=== PATIENT | female | born 2000 | race Caucasian/White ===

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

== ENCOUNTER 2019-04-24 22:01 | Emergency (ER) | payer SELFPAY ==
--- OUTSIDE RECORDS SUMMARY | 2019-04-24 22:06 | XMS REPORT ---
:2000 [facility] Address [address] [place] [address] Dr. [place] [address] [place] [id number] Care Team Providers Name Role Phone Unavailable Unavailable Unavailable Problems This patient has no known problems. Allergies, Adverse Reactions, Alerts This patient has no known allergies or adverse reactions. Medications This patient has no known medications.
[2019-04-24] MEDS ORDERED: BENZONATATE 100 MG CAP PO ONE (23:05)
[2019-04-24] MEDS ORDERED: ALBUTEROL 2.5 MG/3 ML NEB SOL ONE (23:05)
[2019-04-24 23:13] LABS: Urine Blood 2+ (NEG); Urine Glucose NEGATIVE (NEG); Urine Protein 1+ (NEG); Urine Specific Gravity >1.030 (1.005-1.030)
--- NOTE | 2019-04-24 23:31 | EDPHYS ---
Physician Documentation [facility] Name: Tiffanie Corbin Age: 19 yrs Sex: Female : 2000 Arrival Date: 04/24/2019 Time: 22:04 Bed 30 Private MD: ED Physician Boni Hartman HPI: 04/24 22:35 This 19 yrs old Female presents to ER via Ambulatory with complaints of cp Fever, Shortness Of Breath. 22:35 The patient or guardian reports cough, that is intermittent, with productive sputum. cp 22:35 Onset: The symptoms/episode began/occurred 3 day(s) ago. Associated signs and symptoms: cp Pertinent positives: chest pain, with cough, fever, sore throat, sinus pressure, Pertinent negatives: diarrhea, ear ache, vomiting. Severity of symptoms: in the emergency department the symptoms are unchanged despite home interventions. 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 - Social history:: Smoking status: Patient uses tobacco products, smokes one-half pack cigarettes per day. - Ebola Screening: : No symptoms or risks identified at this time. ROS: 22:40 Constitutional: Negative for body aches, chills, fever, poor PO intake. cp 22:40 Eyes: Negative for injury, pain, redness, and discharge. cp 22:40 ENT: Positive for sinus congestion, sore throat, Negative for drainage from ear(s), ear pain, difficulty swallowing, difficulty handling secretions. 22:40 Neck: Negative for pain with movement, pain at rest, stiffness. 22:40 Cardiovascular: Positive for chest pain, with cough. 22:40 Respiratory: Positive for cough, Negative for wheezing. 22:40 Abdomen/GI: Negative for abdominal pain, nausea and vomiting. 22:40 Skin: Negative for rash. 22:40 Neuro: Negative for altered mental status, headache, weakness. 22:40 All other systems are negative. Exam: 22:45 Constitutional: The patient appears in no acute distress, alert, awake, non-toxic, well cp developed, well nourished. 22:45 Head/Face: Normocephalic, atraumatic. cp 22:45 Eyes: Periorbital structures: appear normal, Conjunctiva: normal, no exudate, no injection, Lids and lashes: appear normal, bilaterally. 22:45 ENT: External ear(s): are unremarkable, Ear canal(s): are normal, clear, TM's: bulging, is not appreciated, bilaterally, dullness, bilaterally, erythema, is not appreciated, bilaterally, Nose: is normal, Mouth: Lips: moist, Oral mucosa: moist, Posterior pharynx: Airway: no evidence of obstruction, patent, Tonsils: no enlargement, no exudate, swelling, is not appreciated, erythema, that is mild, exudate, is not appreciated. 22:45 Neck: ROM/movement: is normal, is supple, without pain, no range of motions limitations, no meningismus, Lymph nodes: no appreciated lymphadenopathy. 22:45 Chest/axilla: Inspection: normal, Palpation: is normal, no crepitus, no tenderness. 22:45 Cardiovascular: Rate: normal, Rhythm: regular. 22:45 Respiratory: the patient does not display signs of respiratory distress, Respirations: normal, no use of accessory muscles, no retractions, no splinting, no tachypnea, labored breathing, is not present, Breath sounds: are clear throughout, no decreased breath sounds, no stridor, no wheezing. 22:45 Abdomen/GI: Exam negative for discomfort, distension, guarding, Inspection: abdomen appears normal. 22:45 Back: pain, is absent, ROM is normal. 22:45 Skin: no rash present. Vital Signs: 22:17 BP 130 / 75; Pulse 76; Resp 20; Temp 98.4; Pulse Ox 100% on R/A; Weight 68.04 kg (R); ak1 Height 5 ft. 1 in. (154.94 cm) (R); Pain 4/10; 23:44 BP 129 / 94; Pulse 77; Resp 18; Temp 98; Pulse Ox 100% on R/A; rv 22:17 Body Mass Index 28.34 (68.04 kg, 154.94 cm) ak1 MDM: 22:17 Patient medically screened. sharon 23:00 Differential diagnosis: bronchitis, flu, URI, pneumonia, sinusitis, strep throat. cp 23:30 Data reviewed: vital signs, nurses notes, lab test result(s). 23:30 Counseling: I had a detailed discussion with the patient and/or guardian regarding: the cp historical points, exam findings, and any diagnostic results supporting the discharge/admit diagnosis, lab results, to return to the emergency department if symptoms worsen or persist or if there are any questions or concerns that arise at home. Special discussion: I discussed with the patient/guardian that the patient's current presentation does not indicate dosing of antibiotics. They should follow-up with their primary care provider and return if the symptoms persist or progress. 04/24 22:44 Order name: Urine Dipstick--Ancillary (enter results); Complete Time: 23:29 cm6 04/24 22:44 Order name: Urine --Ancillary (enter results); Complete Time: 23:29 6 04/24 23:29 Interpretation: Reviewed. 04/24 22:47 Order name: Strep; Complete Time: 23:29 04/24 23:13 Order name: Throat Culture EDOH 04/24 22:26 Order name: Urine Dipstick-Ancillary (obtain specimen); Complete Time: 22:37 cp 04/24 22:26 Order name: Urine Test (obtain specimen); Complete Time: 22:37 cp Administered Medications: 23:08 Drug: Albuterol 2.5 mg Route: Inhalation; rv 23:08 Drug: Tessalon Perle 200 mg Route: PO; rv 23:23 Follow up: Response: No adverse reaction; Marked relief of symptoms rv 23:23 Follow up: Response: No adverse reaction; Marked relief of symptoms rv Disposition: 04/24/19 23:30 Discharged to Home. Impression: Acute upper respiratory infection, unspecified. - Condition is Stable. - Discharge Instructions: Upper Respiratory Infection, Adult. - Prescriptions for Tessalon Perles 100 mg Oral Capsule - take 1 capsule by ORAL route every 8 hours As needed; 15 capsule. Medrol (Matteo) 4 mg Oral Tablets, Dose Pack - take 1 tablet by ORAL route as directed - follow package instructions; 1 packet. Albuterol Sulfate 90 mcg/actuation - inhale 1-2 puff by INHALATION route every 4-6 hours; 1 Inhaler. - Medication Reconciliation Form, Thank You Letter, Antibiotic Education, Prescription Opioid Use, Work release form form. - Follow up: Private Physician; When: 2 - 3 days; Reason: Worsening of condition. - Problem is new. - Symptoms have improved. Addendum: 04/26/2019 09:38 Co-signature as Attending Physician, Boni Hartman MD I agree with the assessment and c dominguez plan of care. Signatures: Dispatcher [employer] EDOH Boni Hartman MD MD cha Krenek, Amber RN RN ak1 Boni Vaughn PA PA Cl George, RN RN rv Corrections: (The following items were deleted from the chart) 04/24 23:45 23:30 04/24/2019 23:30 Discharged to Home. Impression: Acute upper respiratory rv infection, unspecified. Condition is Stable. Forms are Medication Reconciliation Form, Thank You Letter, Antibiotic Education, Prescription Opioid Use. Follow up: Private Physician; When: 2 - 3 days; Reason: Worsening of condition. Problem is new. Symptoms have improved. cp 04/25 16:47 04/24 22:30 This 19 yrs old Female presents to ER via Ambulatory with cp complaints of Fever, Shortness Of Breath. cp
--- NOTE | 2019-04-24 23:31 | ER ---
Nurse's Notes [facility] Name: Tiffanie Corbin Age: 19 yrs Sex: Female : 2000 Arrival Date: 04/24/2019 Time: 22:04 Bed 30 Private MD: Diagnosis: Acute upper respiratory infection, unspecified Presentation: 04/24 22:18 Presenting complaint: Patient states: sinus pain, chest congestion, cough, fever X2 ak1 days. pt c/o diarrhea yesterday. pt c/o nausea X2 days. Transition of care: patient was not received from another setting of care. Onset of symptoms is unknown. Risk Assessment: Do you want to hurt yourself or someone else? Patient reports no desire to harm self or others. Initial Sepsis Screen: Does the patient meet any 2 criteria? No. Patient's initial sepsis screen is negative. Does the patient have a suspected source of infection? No. Patient's initial sepsis screen is negative. Care prior to arrival: None. 22:18 Method Of Arrival: Ambulatory ak1 22:18 Acuity: CELIA 3 ak1 Triage Assessment: 22:19 General: Appears in no apparent distress. Behavior is calm, cooperative. ak1 22:20 Respiratory: the patient has mild shortness of breath. ak1 22:36 Respiratory: Reports shortness of breath at rest Onset: The symptoms/episode rv began/occurred gradually. 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 - Social history:: Smoking status: Patient uses tobacco products, smokes one-half pack cigarettes per day. - Ebola Screening: : No symptoms or risks identified at this time. Screenin:20 Abuse screen: Denies threats or abuse. Denies injuries from another. Nutritional ak1 screening: No deficits noted. Tuberculosis screening: No symptoms or risk factors identified. Fall Risk None identified. Assessment: 22:20 Respiratory: Airway is patent Respiratory effort is unlabored, Respiratory pattern is ak1 regular. 22:35 General: Appears in no apparent distress. comfortable, Behavior is calm, cooperative. rv Pain: Complains of pain in chest. Neuro: Level of Consciousness is awake, alert, obeys commands, Oriented to person, place, time, situation. Cardiovascular: Patient's skin is warm and dry. Rhythm is regular. Respiratory: Airway is patent Breath sounds are clear bilaterally. GI: No signs and/or symptoms were reported involving the gastrointestinal system. : No signs and/or symptoms were reported regarding the genitourinary system. EENT: No signs and/or symptoms were reported regarding the EENT system. Derm: Skin is intact, is healthy with good turgor. Musculoskeletal: No signs and/or symptoms reported regarding the musculoskeletal system. Vital Signs: 22:17 BP 130 / 75; Pulse 76; Resp 20; Temp 98.4; Pulse Ox 100% on R/A; Weight 68.04 kg (R); ak1 Height 5 ft. 1 in. (154.94 cm) (R); Pain 4/10; 23:44 BP 129 / 94; Pulse 77; Resp 18; Temp 98; Pulse Ox 100% on R/A; rv 22:17 Body Mass Index 28.34 (68.04 kg, 154.94 cm) ak1 ED Course: 22:04 Patient arrived in ED. cl3 22:10 Boni Vaughn PA is PHCP. cp 22:10 Boni Hartman MD is Attending Physician. cp 22:19 Triage completed. ak1 22:19 Arm band placed on Patient placed in an exam room, on a stretcher, on pulse oximetry, ak1 Patient notified of wait time. 22:20 Patient has correct armband on for positive identification. Bed in low position. Call ak1 light in reach. Side rails up X 1. Adult w/ patient. Pulse ox on. NIBP on. 22:24 Cl Yeboah, SENA is Primary Nurse. rv 23:44 No provider procedures requiring assistance completed. Patient did not have IV access rv during this emergency room visit. Administered Medications: 23:08 Drug: Albuterol 2.5 mg Route: Inhalation; rv 23:08 Drug: Tessalon Perle 200 mg Route: PO; rv 23:23 Follow up: Response: No adverse reaction; Marked relief of symptoms rv 23:23 Follow up: Response: No adverse reaction; Marked relief of symptoms rv Outcome: 23:30 Discharge ordered by . cp 23:45 Discharged to home ambulatory, with family. rv 23:45 Condition: good 23:45 Discharge instructions given to patient, Instructed on discharge instructions, follow up and referral plans. medication usage, Demonstrated understanding of instructions, follow-up care, medications, Prescriptions given X 3. 23:45 Patient left the ED. rv Signatures: Merlyn Perez RN RN ak1 Boni Vaughn PA PA Cl George RN RN rv Sangita Burks cl3
== END 2019-04-24 23:45 | disposition home or self-care (01) ==
LOC: ER 22:01
DX: J06.9 Acute upper respiratory infection, unspecified (principal); J45.909 Unspecified asthma, uncomplicated; Z88.0 Allergy status to penicillin; Z91.010 Allergy to peanuts; Z88.8 Allergy status to other drugs, medicaments and biological substances
CPT/HCPCS: 81003; 81025; 87070; 87081; 99284

== ENCOUNTER 2019-05-31 10:45 | Emergency (ER) | payer SELFPAY ==
[2019-05-31] MEDS ORDERED: ONDANSETRON 4 MG/2 ML VIAL ONE (12:42)
[2019-05-31] MEDS ORDERED: KETOROLAC 30 MG/ML INJ ONE (12:42)
[2019-05-31 13:02] LABS: Absolute Lymphocytes (CBC) 2.2 K/uL (0.7-4.9); Basophils % 0.5 % (0-1.3); Hematocrit 43.5 % (36.0-45.0); Lymphocytes % 22.9 % (15.3-44.8); MPV 7.9 fL (7.6-11.3); RBC Red Blood Cell Count 5.02 M/uL (3.86-4.86)
[2019-05-31 13:18] LABS: ALT/SGPT 16 U/L (12-78); AST/SGOT 10 U/L (15-37); Albumin 4.2 g/dL (3.4-5.0); Alkaline Phosphatase 80 U/L (45-117); BUN Blood Urea Nitrogen 7 mg/dL (7-18); Bicarbonate 27 mmol/L (21-32); Bilirubin Direct 0.1 mg/dL (0-0.2); Bilirubin Total 0.4 mg/dL (0.2-1.0); Glucose Level 95 mg/dL (74-106); Lipase 137 U/L (73-393); Potassium 3.9 mmol/L (3.5-5.1); Protein, Total 7.7 g/dL (6.4-8.2); Sodium Level 145 mmol/L (136-145)
--- NOTE | 2019-05-31 13:47 | RAD REPORT ---
EXAM DESCRIPTION: CTAbdomen Pelvis W Contrast - 05/31/2019 1:34 pm CLINICAL HISTORY: Abdominal pain. ABD PAIN COMPARISON: No comparisons TECHNIQUE: Biphasic CT imaging of the abdomen and pelvis was performed with 100 ml non-ionic IV cont rast. All CT scans are performed using dose optimization technique as appropriate and may include automated exposure control or mA/KV adjustment according to patient size. FINDINGS: The lung bases are clear. The liver, spleen, pancreas, adrenal glands and kidneys are within normal limits. No bowel obstruction, free air, free fluid or abscess. The appendix is normal. No evidence of signi ficant lymphadenopathy. No suspicious bony findings. IMPRESSION: No acute intra-abdominal or pelvic finding.
[2019-05-31 13:48] LABS: Urine Blood NEGATIVE (NEG); Urine Glucose NEGATIVE (NEG); Urine Protein 1+ (NEG); Urine pH 8.5 (5.0-7.0)
--- NOTE | 2019-05-31 14:13 | ER ---
Nurse's Notes [facility] Name: Tiffanie Corbin Age: 19 yrs Sex: Female : 2000 Arrival Date: 05/31/2019 Time: 10:46 Bed 25 Private MD: Diagnosis: Unspecified abdominal pain;Rash and other nonspecific skin eruption Presentation: 05/31 11:05 Presenting complaint: Patient states: not even 2 weeks ago i was having abdomen pain tw2 and swelling, they told me my liver was swollen, chase really couldn't tell me what the problem was, i have diarrhea constantly, i cant eat and i am nauseous , i have blisters popping up on my arm as well. Transition of care: patient was not received from another setting of care. Onset of symptoms was May 31, 2019. Risk Assessment: Do you want to hurt yourself or someone else? Patient reports no desire to harm self or others. Initial Sepsis Screen: Does the patient meet any 2 criteria? No. Patient's initial sepsis screen is negative. Does the patient have a suspected source of infection? No. Patient's initial sepsis screen is negative. Care prior to arrival: None. 11:05 Method Of Arrival: Ambulatory tw2 11:05 Acuity: CELIA 3 tw2 Triage Assessment: 11:07 General: Appears in no apparent distress. Behavior is calm, cooperative, appropriate tw2 for age. Pain: Complains of pain in abdomen. 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 - Social history:: Smoking status: Patient uses tobacco products, smokes one-half pack cigarettes per day, Patient uses alcohol, "not even 5 beers a day". - Ebola Screening: : Patient denies travel to an Ebola-affected area in the 21 days before illness onset. Screenin:10 Abuse screen: Denies threats or abuse. Denies injuries from another. Nutritional ca1 screening: No deficits noted. Tuberculosis screening: No symptoms or risk factors identified. Fall Risk IV access (20 points). Assessment: 12:10 General: Appears in no apparent distress. comfortable, Behavior is calm, cooperative, ca1 appropriate for age. Pain: Complains of pain in left upper quadrant and left lower quadrant Pain does not radiate. Pain currently is 7 out of 10 on a pain scale. Quality of pain is described as sharp, Pain began months ago Is episodic. Neuro: Level of Consciousness is awake, alert, obeys commands, Oriented to person, place, time, situation. Cardiovascular: Heart tones S1 S2 present Capillary refill < 3 seconds Patient's skin is warm and dry. Respiratory: Airway is patent Respiratory effort is even, unlabored, Respiratory pattern is regular, symmetrical, Breath sounds are clear bilaterally. GI: Abdomen is flat, non-distended, Bowel sounds present X 4 quads. Abd is soft X 4 quads Abdomen is tender to palpation in left upper quadrant and left lower quadrant Reports diarrhea, nausea, vomiting. : Urine is clear. EENT: No deficits noted. No signs and/or symptoms were reported regarding the EENT system. Derm: Skin is intact, is healthy with good turgor, Skin is pink, warm \\T\\ dry. Musculoskeletal: Circulation, motion, and sensation intact. Capillary refill < 3 seconds, Range of motion: intact in all extremities. 13:12 Reassessment: Patient appears in no apparent distress at this time. Patient and/or ca1 family updated on plan of care and expected duration. Pain level reassessed. Patient is alert, oriented x 3, equal unlabored respirations, skin warm/dry/pink. 13:57 Reassessment: Patient appears in no apparent distress at this time. Patient is alert, ca1 oriented x 3, equal unlabored respirations, skin warm/dry/pink. 14:24 Reassessment: Patient appears in no apparent distress at this time. Patient is alert, ca1 oriented x 3, equal unlabored respirations, skin warm/dry/pink. Vital Signs: 11:08 BP 142 / 95; Pulse 79; Resp 18; Temp 97.6(TE); Pulse Ox 100% on R/A; Weight 65.77 kg tw2 (R); Height 5 ft. 1 in. (154.94 cm) (R); Pain 7/10; 12:10 BP 116 / 72; Pulse 63; Resp 17 S; Pulse Ox 99% on R/A; ca1 13:12 BP 110 / 62; Pulse 65; Resp 16 S; Pulse Ox 99% on R/A; ca1 13:57 BP 103 / 60; Pulse 76; Resp 17 S; Pulse Ox 100% on R/A; ca1 14:24 BP 122 / 68; Pulse 71; Resp 16 S; Pulse Ox 99% on R/A; Pain 4/10; ca1 11:08 Body Mass Index 27.40 (65.77 kg, 154.94 cm) tw2 ED Course: 10:46 Patient arrived in ED. as 11:07 Triage completed. tw2 11:07 Arm band placed on. tw2 12:06 Angelo Borja NP is PHCP. pm1 12:06 Luis Enrique Bhakta MD is Attending Physician. pm1 12:10 Patient has correct armband on for positive identification. Placed in gown. Bed in low ca1 position. Call light in reach. Side rails up X 1. Pulse ox on. NIBP on. Warm blanket given. 12:21 Jessica Awad, RN is Primary Nurse. ca1 12:35 No provider procedures requiring assistance completed. Initial lab(s) drawn, by me, ca1 sent to lab. Inserted saline lock: 20 gauge in left antecubital area, using aseptic technique. Blood collected. 13:34 CT Abd/Pelvis - IV Contrast Only In Process Unspecified. EDMS 14:24 IV discontinued, intact, bleeding controlled, No redness/swelling at site. Pressure ca1 dressing applied. Administered Medications: 12:35 Drug: Zofran 4 mg Route: IVP; Site: left antecubital; ca1 13:56 Follow up: Response: No adverse reaction; Nausea is decreased ca1 12:40 Drug: TORadol 30 mg Route: IVP; Site: left antecubital; ca1 13:56 Follow up: Response: No adverse reaction; Pain is decreased ca1 Outcome: 14:12 Discharge ordered by MD. pm1 14:24 Discharged to home ambulatory. ca1 14:24 Condition: stable 14:24 Discharge instructions given to patient, Instructed on discharge instructions, follow up and referral plans. medication usage, Demonstrated understanding of instructions, follow-up care, medications, Prescriptions given X 2. 14:25 Patient left the ED. ca1 Signatures: Dispatcher [employer] Sunita Samuel Patrick, CALEB SWITCHBOARD TROUBLESHOOTER pm1 Yanelis Gipson RN RN tw2 Jessica Awad RN RN ca1
--- NOTE | 2019-05-31 14:14 | EDPHYS ---
Physician Documentation [facility] Name: Tiffanie Corbin Age: 19 yrs Sex: Female : 2000 Arrival Date: 05/31/2019 Time: 10:46 Bed 25 Private MD: ED Physician Luis Enrique Bhakta HPI: 05/31 13:45 This 19 yrs old Female presents to ER via Ambulatory with complaints of pm1 Abdominal pain and Skin Problem. 13:45 The patient presents with abdominal pain that is diffuse. Onset: The symptoms/episode pm1 began/occurred 2 week(s) ago. The symptoms do not radiate. Associated signs and symptoms: Pertinent positives: diarrhea, Pertinent negatives: nausea and vomiting, dysuria, fever. The symptoms are described as sharp. Modifying factors: The symptoms are alleviated by nothing, the symptoms are aggravated by nothing. The patient has not experienced similar symptoms in the past. The patient has not recently seen a physician. Patient also complaining of rash to right forearm. 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 - Social history:: Smoking status: Patient uses tobacco products, smokes one-half pack cigarettes per day, Patient uses alcohol, "not even 5 beers a day". - Ebola Screening: : Patient denies travel to an Ebola-affected area in the 21 days before illness onset. ROS: 13:45 Constitutional: Negative for fever, chills, and weight loss, Eyes: Negative for injury, pm1 pain, redness, and discharge, ENT: Negative for injury, pain, and discharge, Neck: Negative for injury, pain, and swelling, Cardiovascular: Negative for chest pain, palpitations, and edema, Respiratory: Negative for shortness of breath, cough, wheezing, and pleuritic chest pain, Back: Negative for injury and pain, MS/Extremity: Negative for injury and deformity. 13:45 : Negative for injury, bleeding, discharge, and swelling. 13:45 Neuro: Negative for headache, weakness, numbness, tingling, and seizure. 13:45 Abdomen/GI: Positive for abdominal pain, diarrhea, Negative for nausea and vomiting. 13:45 Skin: Positive for rash, of the right arm. Exam: 13:45 Constitutional: This is a well developed, well nourished patient who is awake, alert, pm1 and in no acute distress. Head/Face: Normocephalic, atraumatic. Eyes: Pupils equal round and reactive to light, extra-ocular motions intact. Lids and lashes normal. Conjunctiva and sclera are non-icteric and not injected. Cornea within normal limits. Periorbital areas with no swelling, redness, or edema. ENT: Nares patent. No nasal discharge, no septal abnormalities noted. Tympanic membranes are normal and external auditory canals are clear. Oropharynx with no redness, swelling, or masses, exudates, or evidence of obstruction, uvula midline. Mucous membranes moist. Neck: Trachea midline, no thyromegaly or masses palpated, and no cervical lymphadenopathy. Supple, full range of motion without nuchal rigidity, or vertebral point tenderness. No Meningismus. Chest/axilla: Normal chest wall appearance and motion. Nontender with no deformity. No lesions are appreciated. Cardiovascular: Regular rate and rhythm with a normal S1 and S2. No gallops, murmurs, or rubs. Normal PMI, no JVD. No pulse deficits. Respiratory: Lungs have equal breath sounds bilaterally, clear to auscultation and percussion. No rales, rhonchi or wheezes noted. No increased work of breathing, no retractions or nasal flaring. Abdomen/GI: Soft, non-tender, with normal bowel sounds. No distension or tympany. No guarding or rebound. No evidence of tenderness throughout. Back: No spinal tenderness. No costovertebral tenderness. Full range of motion. 13:45 Neuro: Awake and alert, GCS 15, oriented to person, place, time, and situation. Cranial nerves II-XII grossly intact. Motor strength 5/5 in all extremities. Sensory grossly intact. Cerebellar exam normal. Normal gait. 13:45 Skin: Appearance: normal except for affected area, consistent with impetigo, on the dorsal aspect of right forearm. Vital Signs: 11:08 BP 142 / 95; Pulse 79; Resp 18; Temp 97.6(TE); Pulse Ox 100% on R/A; Weight 65.77 kg tw2 (R); Height 5 ft. 1 in. (154.94 cm) (R); Pain 7/10; 12:10 BP 116 / 72; Pulse 63; Resp 17 S; Pulse Ox 99% on R/A; ca1 13:12 BP 110 / 62; Pulse 65; Resp 16 S; Pulse Ox 99% on R/A; ca1 13:57 BP 103 / 60; Pulse 76; Resp 17 S; Pulse Ox 100% on R/A; ca1 14:24 BP 122 / 68; Pulse 71; Resp 16 S; Pulse Ox 99% on R/A; Pain 4/10; ca1 11:08 Body Mass Index 27.40 (65.77 kg, 154.94 cm) tw2 MDM: 12:06 Patient medically screened. pm1 14:12 Data reviewed: vital signs. Data interpreted: Pulse oximetry: on room air is 100 %. pm1 Interpretation: normal. Counseling: I had a detailed discussion with the patient and/or guardian regarding: the historical points, exam findings, and any diagnostic results supporting the discharge/admit diagnosis, lab results, radiology results, the need for outpatient follow up, to return to the emergency department if symptoms worsen or persist or if there are any questions or concerns that arise at home. 05/31 12:25 Order name: Basic Metabolic Panel; Complete Time: 13:22 pm05/31 12:25 Order name: CBC with Diff; Complete Time: 13:07 pm1 05/31 12:25 Order name: Creatinine for Radiology; Complete Time: 13:22 pm05/31 12:25 Order name: Hepatic Function; Complete Time: 13:22 pm1 05/31 12:25 Order name: Lipase; Complete Time: 13:22 pm05/31 13:16 Order name: Urine Dipstick--Ancillary (enter results); Complete Time: 13:50 bd 05/31 12:25 Order name: IV Saline Lock; Complete Time: 12:58 pm1 05/31 12:25 Order name: Labs collected and sent; Complete Time: 12:58 pm1 05/31 12:25 Order name: Urine Dipstick-Ancillary (obtain specimen); Complete Time: 12:58 pm1 05/31 12:25 Order name: Urine Test (obtain specimen); Complete Time: 12:58 pm1 05/31 12:25 Order name: CT Abd/Pelvis - IV Contrast Only; Complete Time: 14:11 pm1 05/31 13:16 Order name: Urine --Ancillary (enter results); Complete Time: 13:50 bd Administered Medications: 12:35 Drug: Zofran 4 mg Route: IVP; Site: left antecubital; ca1 13:56 Follow up: Response: No adverse reaction; Nausea is decreased ca1 12:40 Drug: TORadol 30 mg Route: IVP; Site: left antecubital; ca1 13:56 Follow up: Response: No adverse reaction; Pain is decreased ca1 Disposition: 06/01 08:55 Co-signature as Attending Physician, Luis Enrique Bhakta MD I agree with the assessment and kdr plan of care. Disposition: 05/31/19 14:12 Discharged to Home. Impression: Unspecified abdominal pain, Rash and other nonspecific skin eruption. - Condition is Stable. - Discharge Instructions: Abdominal Pain, Adult, Rash. - Prescriptions for Bactroban 2 % Topical Ointment - Apply to affected area 1 application by TOPICAL route every 12 hours; 30 gram. Bactrim DS 800- 160 mg Oral Tablet - take 1 tablet by ORAL route every 12 hours for 10 days; 20 tablet. - Medication Reconciliation Form, Thank You Letter, Antibiotic Education, Prescription Opioid Use form. - Follow up: Emergency Department; When: As needed; Reason: Worsening of condition. Follow up: Private Physician; When: 2 - 3 days; Reason: Recheck today's complaints, Continuance of care, Re-evaluation by your physician. - Problem is new. - Symptoms have improved. Signatures: Dispatcher [employer] EDMS Luis Enrique Bhakta MD MD kdr Marinas, Patrick, NP CARDIOGRAPHER pm1 Yanelis Gipson RN RN tw2 Jessica Awad RN RN ca1 Corrections: (The following items were deleted from the chart) 05/31 14:17 14:12 05/31/2019 14:12 Discharged to Home. Impression: Unspecified abdominal pain; Rash pm1 and other nonspecific skin eruption. Condition is Stable. Forms are Medication Reconciliation Form, Thank You Letter, Antibiotic Education, Prescription Opioid Use. Follow up: Emergency Department; When: As needed; Reason: Worsening of condition. Follow up: Private Physician; When: 2 - 3 days; Reason: Recheck today's complaints, Continuance of care, Re-evaluation by your physician. Problem is new. Symptoms have improved. pm1 14:25 14:17 05/31/2019 14:12 Discharged to Home. Impression: Unspecified abdominal pain; Rash ca1 and other nonspecific skin eruption. Condition is Stable. Discharge Instructions: Abdominal Pain, Adult, Rash. Prescriptions for Bactroban 2 % Topical Ointment - Apply to affected area 1 application by TOPICAL route every 12 hours; 30 gram, Bactrim DS 800-160 mg Oral Tablet - take 1 tablet by ORAL route every 12 hours for 10 days; 20 tablet. and Forms are Medication Reconciliation Form, Thank You Letter, Antibiotic Education, Prescription Opioid Use. Follow up: Emergency Department; When: As needed; Reason: Worsening of condition. Follow up: Private Physician; When: 2 - 3 days; Reason: Recheck today's complaints, Continuance of care, Re-evaluation by your physician. Problem is new. Symptoms have improved. pm1
[2019-05-31 14:37] VITALS: TEMP 97.6
[2019-05-31 14:42] VITALS: BP 122/68; O2SAT 99
== END 2019-05-31 14:25 | disposition home or self-care (01) ==
LOC: ER 10:45
DX: R21 Rash and other nonspecific skin eruption (principal); F17.210 Nicotine dependence, cigarettes, uncomplicated; Z88.0 Allergy status to penicillin; Z88.8 Allergy status to other drugs, medicaments and biological substances; Z91.010 Allergy to peanuts; Z91.038 Other insect allergy status
CPT/HCPCS: 36415; 74177; 80048; 80076; 81003; 81025; 83690; 85025; 96374; 96375; 99284; J2405; Q9967